=== PATIENT | female | born 1945 | race Caucasian/White ===

== ENCOUNTER 2018-07-20 07:39 | Inpatient (IN) ==
--- NOTE | 2018-07-20 08:17 | ED ---
HPI General Chief complaint: Skin/Abscess/Foreign Body Stated complaint: Re Eval of left hand middle finger Time Seen by Provider: 07/20/18 08:02 Source: patient Mode of arrival: ambulatory Limitations: no limitations History of Present Illness HPI narrative: 73yo F with PMH of COPD here for wound check. Pt was seen here 2 days ago for left third digit cellulitis and abscess and had I&D performed. She was placed on bactrim and cephalexin in addition to the doxycycline that she was taking for possible tick bite. She noticed redness up her left forearm yesterday but said the swelling on the 3rd digit does not seem to really change. Denies any fever but does feel a little nauseous. Denies any chest pain, sob, vomiting, abdominal pain, focal weakness or numbness. Related Data Home Medications Medication Instructions Recorded Confirmed doxycycline monohydrate 100 mg PO TID 07/18/18 07/20/18 [id number]-[id number]-xacxpsul 1 inh INHALATION DAILY 07/20/18 07/20/18 [Trelegy Ellipta] Previous Rx's Medication Instructions Recorded cephalexin [Keflex] 500 mg PO Q8H 10 Days #30 cap 07/18/18 sulfamethoxazole-trimethoprim 1 tab PO BID 10 Days #20 tab 07/18/18 [Bactrim DS] Allergies Allergy/AdvReac Type Severity Reaction Status Date / Time No Known Allergies Allergy Verified 07/20/18 07:50 Review of Systems ROS: all other systems reviewed are negative [facility] Social History Social History Substance History: No History of Abuse Second Hand Smoke Exposure: No Smoking Status: Former smoker How Often Do You Have a Drink Containing Alcohol: 2 to 4 times a month Recent Travel in [facility] within the Last 8 Weeks: No Recent Out of Country Travel within the Last 8 Weeks: No Immunization History Tetanus Immunization: <5 Years Exam Narrative Exam Narrative: GENERAL: 73yo F not in distress. SKIN: Focused skin assessment warm/dry. HEAD: Atraumatic. Normocephalic. CARDIOVASCULAR: Regular rate and rhythm. No murmur appreciated. RESPIRATORY: No accessory muscle use. Clear to auscultation. Breath sounds equal bilaterally. GASTROINTESTINAL: Abdomen soft, non-tender, nondistended. MUSCULOSKELETAL: Left hand: +Erythema and edema in third digit diffusely. Able to flex and extend third digit. +opening from I&D volar aspect of left 3rd IP, able to express more purulent discharge. Radial pulse 2+. Streaking erythema up dorsum of left forearm. Forearm compartment soft. NEUROLOGICAL: Awake and alert. No obvious cranial nerve deficits. Motor grossly within normal limits. Normal speech. PSYCHIATRIC: Appropriate mood and affect; insight and judgment normal. Course Initial Documented Vital Signs Temperature 98.6 F 07/20/18 07:46 Pulse Rate 93 H 07/20/18 07:46 Respiratory Rate 16 07/20/18 07:46 Blood Pressure 141/67 H 07/20/18 07:46 Pulse Oximetry 96 07/20/18 07:46 Last Documented Vital Signs Temperature 97.0 F L 07/21/18 16:00 Pulse Rate 71 07/21/18 16:00 Respiratory Rate 16 07/21/18 16:00 Blood Pressure 106/52 L 07/21/18 16:00 Pulse Oximetry 92 L 07/21/18 16:00 Medical Decision Making [facility] Narrative Medical decision making narrative: 73yo F with left third finger infection that improving with outpatient antibiotics. Pt is well appearing but is having new streaking up her left forearm. No fever here. HR is 93bpm. Labs reviewed, leukocytosis at 13.1 so patient does meet sepsis criteria. Lactic acid normal. Pt has been on doxycycline since 07/08/18 for tick bite and has been on bactrim and cephalexin for 2 days. Will admit pt for cellulitis/abscess that failed outpatient treatment. Discussed with hand surgery Dr. Dumont who ordered MRI and recommend to keep pt NPO for possible OR. Discussed with Dr. Vides and accepted to his service. Medical Screen Exam Complete: Yes Emergency Medical Condition: Yes Differential Diagnosis Differential Diagnosis: Cellulitis and abscess finger that failed outpatient therapy Lab Data Result diagrams: 07/21/18 04:40 07/20/18 10:06 Lab Results 07/20/18 07/20/18 07/20/18 Range/Units 08:25 08:25 08:25 CBC w Diff Slide review pending WBC 13.1 H (4.0-11.0) th/mm3 RBC 4.36 (4.00-5.30) mil/mm3 Hgb 13.7 (11.6-15.3) gm/dL Hct 39.7 (35.0-46.0) % MCV 91.1 (80.0-100.0) fL MCH 31.4 (27.0-34.0) pg MCHC 34.4 (32.0-36.0) % RDW 13.3 (11.6-17.2) % Plt Count 282 (150-450) th/mm3 MPV 8.3 (7.0-11.0) fL Neut % (Auto) 82.4 H (16.0-70.0) % Lymph % (Auto) 8.5 L (9.0-44.0) % [place] % (Auto) 5.3 (0.0-8.0) % Eos % (Auto) 0.1 (0.0-4.0) % Baso % (Auto) 3.7 H (0.0-2.0) % Neut # (Auto) 10.8 H (1.8-7.7) th/mm3 Lymph # (Auto) 1.1 (1.0-4.8) th/mm3 [place] # (Auto) 0.7 (0.0-0.9) th/mm3 Eos # (Auto) 0.0 (0.0-0.4) th/mm3 Baso # (Auto) 0.5 H (0.0-0.2) th/mm3 WBC Differential . Diff Scan Auto diff confirmed Differential Comment . ESR 19 (0-30) mm/hr Sodium (136-145) meq/L Potassium (3.5-5.1) meq/L Chloride (98-107) meq/L Carbon Dioxide (21.0-32.0) meq/L Anion Gap (5-15) meq/L BUN (7-18) mg/dL Creatinine (0.50-1.00) mg/dL Estimated GFR (>89) mL/min Random Glucose (74-106) mg/dL Lactic Acid 1.4 (0.4-2.0) mmol/L Calcium (8.5-10.1) mg/dL C-Reactive Protein (0.00-0.30) mg/dL 07/20/18 07/20/18 07/21/18 Range/Units 10:06 10:06 04:40 CBC w Diff Auto diff final WBC 8.2 (4.0-11.0) th/mm3 RBC 3.99 L (4.00-5.30) mil/mm3 Hgb 12.3 (11.6-15.3) gm/dL Hct 37.7 (35.0-46.0) % MCV 94.6 D (80.0-100.0) fL MCH 30.8 (27.0-34.0) pg MCHC 32.6 (32.0-36.0) % RDW 13.2 (11.6-17.2) % Plt Count 213 (150-450) th/mm3 MPV 8.6 (7.0-11.0) fL Neut % (Auto) 78.6 H (16.0-70.0) % Lymph % (Auto) 13.0 (9.0-44.0) % [place] % (Auto) 7.3 (0.0-8.0) % Eos % (Auto) 0.6 (0.0-4.0) % Baso % (Auto) 0.5 (0.0-2.0) % Neut # (Auto) 6.5 (1.8-7.7) th/mm3 Lymph # (Auto) 1.1 (1.0-4.8) th/mm3 [place] # (Auto) 0.6 (0.0-0.9) th/mm3 Eos # (Auto) 0.0 (0.0-0.4) th/mm3 Baso # (Auto) 0.0 (0.0-0.2) th/mm3 WBC Differential . Diff Scan Differential Comment . ESR (0-30) mm/hr Sodium 134 L (136-145) meq/L Potassium 3.8 (3.5-5.1) meq/L Chloride 102 (98-107) meq/L Carbon Dioxide 22.1 (21.0-32.0) meq/L Anion Gap 10 (5-15) meq/L BUN 15 (7-18) mg/dL Creatinine 0.76 (0.50-1.00) mg/dL Estimated GFR 75 L (>89) mL/min Random Glucose 95 (74-106) mg/dL Lactic Acid (0.4-2.0) mmol/L Calcium 8.6 (8.5-10.1) mg/dL C-Reactive Protein 3.43 H (0.00-0.30) mg/dL Imaging Data Radiologist's impression: Hand MRI 07/20/18 00:00 CONCLUSION: 1. Diffuse soft tissue swelling third digit without abscess, characteristic of cellulitis. Finger X-Ray 07/20/18 10:08 CONCLUSION: Soft tissue swelling third digit. Discharge Plan Discharge Disposition Patient Disposition: 30 Still Patient Discharge Details Diagnosis: Abscess of finger Physicians Team ED Provider: Isidra Salas Primary Care Provider: Chris Gonzales Attending Provider: Edenilson Downey Other Providers: Tita Dumont Reba K Status ED Status: Left Department Discharge Information Discharge Date/Time: 07/20/18 10:57
[2018-07-20 08:41] LABS: Baso # (Auto) 0.5 th/mm3 (0.0-0.2); Baso % (Auto) 3.7 % (0.0-2.0); Eos % (Auto) 0.1 % (0.0-4.0); Hematocrit 39.7 % (35.0-46.0); Hemoglobin 13.7 gm/dL (11.6-15.3); Lymph # (Auto) 1.1 th/mm3 (1.0-4.8); Lymph % (Auto) 8.5 % (9.0-44.0); Mean Corpuscular HGB Conc 34.4 % (32.0-36.0); Mean Corpuscular Hemoglobin 31.4 pg (27.0-34.0); Mean Corpuscular Volume 91.1 fL (80.0-100.0); Mean Platelet Volume 8.3 fL (7.0-11.0); Mono # (Auto) 0.7 th/mm3 (0.0-0.9); Mono % (Auto) 5.3 % (0.0-8.0); Neut # (Auto) 10.8 th/mm3 (1.8-7.7); Neut % (Auto) 82.4 % (16.0-70.0); Platelet Count 282 th/mm3 (150-450); Red Blood Count 4.36 mil/mm3 (4.00-5.30); Red Cell Distribution Width 13.3 % (11.6-17.2); White Blood Count 13.1 th/mm3 (4.0-11.0)
[2018-07-20] MEDS ORDERED: Vancomycin Inj 1,000 MG in Sodium Chlor 0.9% Inj 250 ML IV.SIG ONE (09:41)
[2018-07-20] MEDS ORDERED: Bisacodyl 10 MG Supp RECTAL PRN (09:47)
--- NOTE | 2018-07-20 09:53 | P.HP ---
History of Present Illness Service: Hospitalist Primary Care Physician: Chris Gonzales MD Chief Complaint: Left hand third digit infection History of Present Illness: Ms. Delgado is a pleasant 73-year-old female with a history of emphysema who presents to the emergency department on 07/20/2018 due to worsening infection of her third digit of her left hand. She did some yard work on 2017 with gloves on but felt a pinprick sensation. Subsequently she started having pain and swelling. She was seen in the emergency department on 07/18/2018. She underwent bedside I&D and was discharged on Bactrim and Keflex. Patient was already on doxycycline due to tick bite before. Despite taking antibiotics patient's symptoms did not improve which led to this admission. Patient denies any chest pain, shortness of breath, fever or chills. Denies any changes in bowel or bladder habits. Hand surgery was consulted. Past medical history: Emphysema Past surgical history: Hysterectomy, mammoplasty, tonsillectomy Social history: Patient denies using tobacco or illicit drugs. She drinks socially. Family history: Mother had Alzheimer's disease, father had [place]'s asthma. Review of Systems All other systems reviewed negative except as stated in HPI PMFSH - History History Provided By: Patient - Medical History Medical History: Medical History (Last Reviewed 07/20/18 @ 15:53 by Jude Vides DO) COPD (chronic obstructive pulmonary disease) History of hysterectomy - Surgical History Surgical History: Surgical History (Last Reviewed 07/20/18 @ 15:53 by Jude Vides DO) Hx of tonsillectomy - Tobacco History Second Hand Smoke Exposure: No Tobacco Use In Past 30 Days: No Smoking Status: Former smoker - Alcohol History How Often Do You Have a Drink Containing Alcohol: 2 to 4 times a month - Substance Use History Substance History: No History of Abuse - Travel History Recent Travel in the [place] Within the Last 8 Weeks: No Recent Travel Out of the Country Within the Last 8 Weeks: No - Immunization History Tetanus Immunization: <5 Years Medications and Allergies Active Medications: Active Medications Acetaminophen (Tylenol) 650 mg PO Q4H PRN PRN Reason: Headache, fever, pain 1-4 Al Hydroxide/Mg Hydroxide (Milk Of Magnesia Liq) 30 ml PO Q12H PRN PRN Reason: Mild Constipation Bisacodyl (Dulcolax Supp) 10 mg RECTAL DAILY PRN PRN Reason: SEVERE CONSITIPATION Vancomycin HCl 1,000 mg/ (Sodium Chloride) 250 mls @ 250 mls/hr IV.SIG ONCE ONE Stop: 07/20/18 10:40 Sodium Chloride (Ns Inj) 1,000 mls @ 100 mls/hr IV.CONT .Q10H SILVESTRE Stop: 07/21/18 09:59 Lactulose (Lactulose Liq) 30 ml PO DAILY PRN PRN Reason: SEVERE CONSITIPATION Ondansetron HCl (Zofran Inj) 4 mg IV.PUSH Q6H PRN PRN Reason: NAUSEA OR VOMITING Sennosides (Senokot) 17.2 mg PO Q12H PRN PRN Reason: Moderate Constipation Allergies Allergy/AdvReac Type Severity Reaction Status Date / Time No Known Allergies Allergy Verified 07/20/18 07:50 Home Medications Medication Instructions Recorded Confirmed Type doxycycline monohydrate 100 mg PO TID 07/18/18 07/20/18 History svlqgegoewb-wwrlmqufn-cjypcrfa 1 inh INHALATION DAILY 07/20/18 07/20/18 History [Trelegy Ellipta] Exam Vital signs: Vital Signs 07/20/18 07:46 Temperature 98.6 F Pulse Rate 93 H Respiratory Rate 16 Blood Pressure 141/67 H Pulse Oximetry 96 Intake & Output 07/19/18 07/20/18 07/20/18 18:59 06:59 18:59 Weight 52.9 kg Narrative: GENERAL: This is a well-nourished, well-developed patient, in no apparent distress. SKIN: No rashes, ecchymoses or lesions. Warm and dry. HEAD: Atraumatic. Normocephalic. No temporal or scalp tenderness. EYES: Pupils equal round and reactive. No injection or drainage. ENT: Nose without bleeding, purulent drainage or septal hematoma. Airway patent. NECK: Trachea midline. No lymphadenopathy. Supple, nontender, no meningeal signs. CARDIOVASCULAR: Regular rate and rhythm without murmurs, gallops, or rubs. No JVD. RESPIRATORY: Clear to auscultation. Breath sounds equal bilaterally. No wheezes , rales, or rhonchi. GASTROINTESTINAL: Abdomen soft, non-tender, nondistended. No guarding. MUSCULOSKELETAL: Extremities without clubbing, cyanosis. Significant swelling of left hand and there is purplish discoloration with edema and tenderness of her left hand third digit. NEUROLOGICAL: Awake and alert. Cranial nerves II through XII intact. No focal neurological deficits. Normal speech. Results - Labs CBC & Chem 7: 07/20/18 08:25 07/20/18 10:06 Labs: Laboratory Results - last 24 hr 07/20/18 07/20/18 08:25 08:25 CBC w Diff Slide review pending WBC 13.1 H RBC 4.36 Hgb 13.7 Hct 39.7 MCV 91.1 MCH 31.4 MCHC 34.4 RDW 13.3 Plt Count 282 MPV 8.3 Neut % (Auto) 82.4 H Lymph % (Auto) 8.5 L [place] % (Auto) 5.3 Eos % (Auto) 0.1 Baso % (Auto) 3.7 H Neut # (Auto) 10.8 H Lymph # (Auto) 1.1 [place] # (Auto) 0.7 Eos # (Auto) 0.0 Baso # (Auto) 0.5 H WBC Differential . Diff Scan Auto diff confirmed Differential Comment . Lactic Acid 1.4 - Imaging Hand MRI 07/20/18 00:00 CONCLUSION: 1. Diffuse soft tissue swelling third digit without abscess, characteristic of cellulitis. Finger X-Ray 07/20/18 10:08 CONCLUSION: Soft tissue swelling third digit. Caprini VTE Risk Assessment Caprini VTE Risk Assessment: No/Low Risk (score <= 1) Caprini Risk Assessment Model: Point Value = 1 Point Value = 2 Point Value = 3 Point Value = 5 Age 41-60 Minor surgery BMI > 25 kg/m2 Swollen legs Varicose veins or History of unexplained or recurrent spontaneous Oral contraceptives or hormone replacement Sepsis (< 1 month) Serious lung disease, including pneumonia (< 1 month) Abnormal pulmonary function Acute myocardial infarction Congestive heart failure (< 1 month) History of inflammatory bowel disease Medical patient at bed rest Age 61-74 Arthroscopic surgery Major open surgery (> 45 min) Laparoscopic surgery (> 45 min) Malignancy Confined to bed (> 72 hours) Immobilizing plaster cast Central venous access Age >= 75 History of VTE Family history of VTE Factor V Leiden Prothrombin [id number] Lupus anticoagulant Anticardiolipin antibodies Elevated serum homocysteine Heparin-induced thrombocytopenia Other congenital or acquired thrombophilia Stroke (< 1 month) Elective arthroplasty Hip, pelvis, or leg fracture Acute spinal cord injury (< 1 month) Prophylaxis Regimen: Total Risk Factor Score Risk Level Prophylaxis Regimen 0-1 Low Early ambulation 2 Moderate Order ONE of the following: *Sequential Compression Device (SCD) *Heparin 5000 units SQ BID 3-4 Higher Order ONE of the following medications: *Heparin 5000 units SQ TID *Enoxaparin/Lovenox 40 mg SQ daily (WT < 150 kg, CrCl > 30 mL/min) *Enoxaparin/Lovenox 30 mg SQ daily (WT < 150 kg, CrCl > 10-29 mL/min) *Enoxaparin/Lovenox 30 mg SQ BID (WT < 150 kg, CrCl > 30 mL/min) AND/OR *Sequential Compression Device (SCD) 5 or more Highest Order ONE of the following medications: *Heparin 5000 units SQ TID (Preferred with Epidurals) *Enoxaparin/Lovenox 40 mg SQ daily (WT < 150 kg, CrCl > 30 mL/min) *Enoxaparin/Lovenox 30 mg SQ daily (WT < 150 kg, CrCl > 10-29 mL/min) *Enoxaparin/Lovenox 30 mg SQ BID (WT < 150 kg, CrCl > 30 mL/min) AND *Sequential Compression Device (SCD) Assessment and Plan - Plan Ms. Delgado is a pleasant 73-year-old female with a history of emphysema who presented to the emergency department due to worsening left hand third digit infection that she noticed initially on 07/17/2018. She was seen in the emergency department on 07/18/2018 underwent bedside I&D and subsequently was discharged from the ED on oral Keflex and Bactrim. Despite taking antibiotics her symptoms did not get better which led to this admission. Left hand third digit infection Infection appears to be spreading and now her left hand and left forearm involved. Hand surgery consulted. MRI shows no abscess. Probable surgical intervention today. Continue cefepime and vancomycin empirically. History of emphysema Continue Trelegy Ellipta. Currently no evidence of decompensation. Full code. SCDs, ambulation. Discharge plan: Probable discharge tomorrow 07/21/2018 pending hand surgery clearance.
[2018-07-20 10:23] LABS: Potassium 3.8 meq/L (3.5-5.1)
[2018-07-20 10:26] LABS: Calcium 8.6 mg/dL (8.5-10.1); Carbon Dioxide 22.1 meq/L (21.0-32.0)
--- NOTE | 2018-07-20 10:55 | XR ---
EXAM DATE: 07/20/2018 10:45 AM EST AGE/SEX: 73 years / Female INDICATIONS: Swollen, painful finger after working in garden. No known injury CLINICAL DATA: This is the patient's initial encounter. Patient reports that signs and symptoms have been present for 4 - 6 days and indicates a pain score of 5/10. MEDICAL/SURGICAL HISTORY: None. None. COMPARISON: No prior exams available for comparison. FINDINGS: There is soft tissue swelling of the third digit. 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 No fracture or dislocation. CONCLUSION: Soft tissue swelling third digit. Electronically signed by: Joby Pabon MD 07/20/2018 10:54 AM EST
[2018-07-20] MEDS ORDERED: Vancomycin Consult Pharmacy OTHER PRN (11:00)
--- NOTE | 2018-07-20 12:13 | MR ---
EXAM DATE: 07/20/2018 12:02 PM EST AGE/SEX: 73 years / Female INDICATIONS: Osteomyelitis. Abscess. Edema third digit left hand. CLINICAL DATA: This is the patient's initial encounter. Patient reports that signs and symptoms have been present for 1 day and indicates a pain score of 0/10. MEDICAL/SURGICAL HISTORY: Chronic obstructive pulmonary disease. Tonsillectomy. Right carpal tu nnel. COMPARISON: [facility], FINGER LEFT 3RD DIGIT MIN 2V, 07/20/2018. . TECHNIQUE: Multiplanar, multisequence MRI examination was performed without contrast. FINDINGS: Marrow: There is homogeneous signal in the marrow of the visualized bones of the hand. Metacarpal-Phalangeal Joints: The MCP joints are unremarkable with no evidence of erosion, effusion, or malalignment. Interphalangeal Joints: The PIP and DIP joints are unremarkable with no evidence of erosion, effusio n or malalignment. Extensor Tendons: The visualized extensor tendons are intact. Flexor Tendons: The visualized flexor tendons are intact. Soft Tissues: There is no evidence of soft tissue mass or fluid collection. There is diffuse subcutan eous edema seen circumferentially the third digit. I do not see an abscess. CONCLUSION: 1. Diffuse soft tissue swelling third digit without abscess, characteristic of cellulitis. Electronically signed by: Joby Pabon MD 07/20/2018 12:11 PM EST
[2018-07-20] MEDS: Sod Chloride 0.9% Inj 1,000 ML IV.CONT SCH (12:30)
[2018-07-20] MEDS ORDERED: Chlorhexidine Gluconate 2% 1 Pack (2 Cloths) TOPICAL ONE (15:59)
[2018-07-20] MEDS ORDERED: Metoprolol Tartrate 25 MG Tablet PO ONE (15:59)
[2018-07-20] MEDS ORDERED: Sodium Chlor 0.9% Inj 500 ML IV.SIG SCH (16:00)
[2018-07-20] MEDS ORDERED: Neomycin/Polymyxin G.U. Irrigant 1 ML Ampul ONE (16:27)
[2018-07-20] MEDS ORDERED: Lidocaine 2% Inj 50 ML Vial ONE (16:27)
[2018-07-20] MEDS ORDERED: fentaNYL Citrate Inj 100 MCG/2 ML Ampul ONE (16:33)
[2018-07-20] MEDS ORDERED: Lidocaine PF 1% Inj 5 ML Syringe INFILTRATN ONE (17:03)
--- NOTE | 2018-07-20 17:56 | P.PNOP ---
Physical Exam Vital signs: Vital Signs 07/20/18 07:46 07/20/18 09:56 07/20/18 12:00 Temperature 98.6 F 97.2 F L Pulse Rate 93 H 89 71 Respiratory Rate 16 16 20 Blood Pressure 141/67 H 136/65 131/64 Pulse Oximetry 96 99 07/20/18 15:48 Temperature 97.2 F L Pulse Rate 71 Respiratory Rate 20 Blood Pressure 131/64 Pulse Oximetry 98 Intake & Output 07/19/18 07/20/18 07/20/18 18:59 06:59 18:59 Intake Total 350 / 350 Balance 350 / 350 Weight 52.9 kg Intake: IV 350 / 350 Maxipime Inj 2,000 MG In NS Inj 100 / 100 100 ML @ 200 mls/hr IV.SIG Q8H SILVESTRE Rx#:[id number] Vancomycin Inj 1,000 MG In NS 250 / 250 Inj 250 ML @ 250 mls/hr IV.SIG ONCE ONE Rx#:[id number] Results - Labs CBC & Chem 7: 07/20/18 08:25 07/20/18 10:06 Laboratory Results - last 24 hr 07/20/18 07/20/18 07/20/18 08:25 08:25 08:25 CBC w Diff Slide review pending WBC 13.1 H RBC 4.36 Hgb 13.7 Hct 39.7 MCV 91.1 MCH 31.4 MCHC 34.4 RDW 13.3 Plt Count 282 MPV 8.3 Neut % (Auto) 82.4 H Lymph % (Auto) 8.5 L [place] % (Auto) 5.3 Eos % (Auto) 0.1 Baso % (Auto) 3.7 H Neut # (Auto) 10.8 H Lymph # (Auto) 1.1 [place] # (Auto) 0.7 Eos # (Auto) 0.0 Baso # (Auto) 0.5 H WBC Differential . Diff Scan Auto diff confirmed Differential Comment . ESR 19 Sodium Potassium Chloride Carbon Dioxide Anion Gap BUN Creatinine Estimated GFR Random Glucose Lactic Acid 1.4 Calcium C-Reactive Protein 07/20/18 07/20/18 10:06 10:06 CBC w Diff WBC RBC Hgb Hct MCV MCH MCHC RDW Plt Count MPV Neut % (Auto) Lymph % (Auto) [place] % (Auto) Eos % (Auto) Baso % (Auto) Neut # (Auto) Lymph # (Auto) [place] # (Auto) Eos # (Auto) Baso # (Auto) WBC Differential Diff Scan Differential Comment ESR Sodium 134 L Potassium 3.8 Chloride 102 Carbon Dioxide 22.1 Anion Gap 10 BUN 15 Creatinine 0.76 Estimated GFR 75 L Random Glucose 95 Lactic Acid Calcium 8.6 C-Reactive Protein 3.43 H - Imaging Impressions Hand MRI 07/20/18 00:00 CONCLUSION: 1. Diffuse soft tissue swelling third digit without abscess, characteristic of cellulitis. Finger X-Ray 07/20/18 10:08 CONCLUSION: Soft tissue swelling third digit. Assessment and Plan - Assessment and Plan 73yF prior patient of mine s/p R CTR presents now after sustaining injury while gardening to left middle finger 07/15. Patient presented to ER 07/18 and underwent I&D by ER physician with cultures prelim gram + rods, represented today with persistent pain and swelling now POD0 s/p I&D left middle finger and flexor tendon sheath -Significant purulence along flexor tendon sheath -Follow cultures and ID recs, discussed with patient need for a few days of admission for IV Ab -Elevate left hand, gentle ROM fingers, do NOT remove dressing until Dr Dumont changes dressing, likely followup in office 07/24 if discharged by that time
--- NOTE | 2018-07-20 18:37 | MB ---
cc: Tita Dumont MD DATE: 07/20/2018 REASON FOR CONSULTATION: Abscess, left middle finger. HISTORY OF PRESENT ILLNESS: Lnida Delgado is a 73-year-old female who I have seen in the past for a right carpal tunnel release, who states that when she was up [place] at the end of June, she sustained a tick bite over her left hip and was taking doxycycline for this. She states that she was working outside in the yard on 07/15/2018, and the following day, she noticed an area of purulence over the volar aspect of the left middle finger PIP joint. She presented to the emergency room on 07/18/2018 where she underwent incision and drainage by the emergency room physician, a culture and discharged on oral antibiotics including possibly Keflex and Bactrim. The patient re-presented to the emergency room today as she was concerned for minimal improvement in her symptoms. She does report pain and swelling over the left middle finger. Reports mild paresthesias. Culture is currently growing gram-positive rods. PAST MEDICAL HISTORY: COPD. PAST SURGICAL HISTORY: Hysterectomy, tonsillectomy, right carpal tunnel release. SOCIAL HISTORY: The patient is a snowbird. She recently returned from [place]. She lives at home with her . She denies any significant tobacco, alcohol or drug use. PHYSICAL EXAMINATION: The patient is alert and oriented. Exam of the left middle finger shows significant erythema over the left middle finger. Fusiform swelling of the left middle finger. Function intact of FDS and FDP with significant stiffness over the left middle finger. There is a puncture over the central aspect of the volar left middle finger PIP joint with some purulent drainage. Sensation present but decreased on the radial and ulnar side. Less than 2 second capillary refill. LABORATORY DATA: White count 13.1. ESR 19. CRP 3.43. Culture from 07/18/2018 growing a gram-positive ely. IMAGING DATA: X-ray shows no evidence of bony involvement. MRI shows concern for abscess along the flexor tendon sheath of the left middle finger. ASSESSMENT AND PLAN: A 73-year-old female with minimal improvement on oral antibiotics after an infection of the left middle finger. Treatment options discussed with the patient. She elected to proceed with surgical intervention. Risks were explained, which include, but are not limited to wound complications, infection, stiffness, pain, need for additional surgery, and she elected to proceed. This will be done at the earliest available time today. It was discussed with the patient she will likely need to remain in the hospital for several days for intravenous antibiotics while the cultures result. MD VI Amezcua/rodolfo , 06:01 PM , 06:07 PM SUSANA
--- NOTE | 2018-07-20 19:04 | MP ---
cc: Tita Dumont MD DATE OF OPERATION: 07/20/2018 PREOPERATIVE DIAGNOSIS: Abscess involving flexor tendon sheath, left middle finger. POSTOPERATIVE DIAGNOSIS: Abscess involving flexor tendon sheath, left middle finger. PROCEDURE PERFORMED: Incision and drainage of abscess, left middle finger flexor tendon sheath. SURGEON: Tita Dumont MD ANESTHESIA: General and local. TOURNIQUET TIME: 25 minutes at 200 mmHg. SPECIMEN: Culture. INDICATIONS FOR PROCEDURE: Linda Delgado is a 73-year-old female who states that she sustained an injury to her left middle finger in the garden on 07/15/2018. She underwent incision and drainage by the emergency room physician on 07/18/2018 with minimal improvement and re-presented today for evaluation. She elected to proceed with surgical intervention. Risks were explained, which include, but are not limited to wound complications, infection, stiffness, pain, need for additional surgery, and she elected to proceed. DESCRIPTION OF PROCEDURE: The patient was identified in the preoperative holding area and the correct extremity was marked. The patient was taken to the operating room where anesthesia was induced. The left upper extremity was prepped and draped in normal sterile fashion. Approximately 10 mL of 2% lidocaine without epinephrine was used for local anesthesia. Unfortunately, the ER physician made a central vertical incision over the volar left middle finger PIP joint which was not in line with a Aurora incision. I did my best to incorporate this into a Aurora incision. Upon doing this, there was significant purulence subcutaneously as well as along the flexor tendon sheath. This was debrided using antibiotic saline as well as rongeurs. The flexor tendon was intact. The digital nerves and arteries were intact. Tourniquet was released. Hemostasis was obtained. The wound was closed on the edges with nylon and centrally with chromic, again, due to the significant maceration. Upon release of the tourniquet, there was less than 2-second capillary refill to the finger. A culture was sent. The patient was placed into a bulky soft dressing and awoken from anesthesia without any complications. It was recommended the patient remain in the hospital for several days for IV antibiotics. Tita Dumont MD SE/rodolfo , 06:03 PM , 06:08 PM SUSANA
[2018-07-21] MEDS: Sod Chloride 0.9% Inj 1,000 ML IV.CONT SCH ×2 (01:56→11:13)
[2018-07-21 05:41] LABS: Baso % (Auto) 0.5 % (0.0-2.0); Eos % (Auto) 0.6 % (0.0-4.0); Hematocrit 37.7 % (35.0-46.0); Hemoglobin 12.3 gm/dL (11.6-15.3); Lymph # (Auto) 1.1 th/mm3 (1.0-4.8); Mean Corpuscular HGB Conc 32.6 % (32.0-36.0); Mean Corpuscular Hemoglobin 30.8 pg (27.0-34.0); Mean Corpuscular Volume 94.6 fL (80.0-100.0); Mean Platelet Volume 8.6 fL (7.0-11.0); Mono # (Auto) 0.6 th/mm3 (0.0-0.9); Mono % (Auto) 7.3 % (0.0-8.0); Neut # (Auto) 6.5 th/mm3 (1.8-7.7); Neut % (Auto) 78.6 % (16.0-70.0); Platelet Count 213 th/mm3 (150-450); Red Blood Count 3.99 mil/mm3 (4.00-5.30); Red Cell Distribution Width 13.2 % (11.6-17.2); White Blood Count 8.2 th/mm3 (4.0-11.0)
[2018-07-21] MEDS ORDERED: Vancomycin Inj 1,200 MG in Sodium Chlor 0.9% Inj 250 ML IV.SIG SCH (06:00)
[2018-07-21] MEDS ORDERED: Non-Formulary Drug (Fluticasone-Umeclidin-Vilanter [Trelegy Ellipta] 1 INH) INHALATION SCH (09:00)
[2018-07-21] MEDS: FLUTICASONE UMECLIDINIUM VILANTEROL INH SCH (09:58)
--- NOTE | 2018-07-21 10:03 | P.PN ---
Subjective Interval history: Follow up for left hand digit 3 infection s/p I&D. Patient is currently doing well. No fever, chills. Pain is well controlled on PO pain meds. Physical Exam Vital signs: Vital Signs 07/20/18 12:00 07/20/18 15:48 07/20/18 17:40 Temperature 97.2 F L 97.2 F L 98.2 F Pulse Rate 71 71 82 Respiratory Rate 20 20 18 Blood Pressure 131/64 131/64 147/82 H Pulse Oximetry 98 98 07/20/18 17:54 07/20/18 18:09 07/20/18 18:28 Temperature 98.0 F Pulse Rate 75 75 77 Respiratory Rate 18 18 Blood Pressure 138/71 131/73 Pulse Oximetry 99 97 07/20/18 20:00 07/21/18 00:00 07/21/18 08:00 Temperature 98.5 F 97.7 F 97.8 F Pulse Rate 80 79 81 Respiratory Rate 18 18 17 Blood Pressure 134/59 L 132/64 97/52 L Pulse Oximetry 97 95 96 Intake & Output 07/20/18 07/21/18 07/21/18 18:59 06:59 18:59 Intake Total 950 / 950 1702 / 1702 Output Total 350 / 350 Balance 950 / 950 1352 / 1352 Weight 52.9 kg 53.8 kg Intake: IV 350 / 350 1462 / 1462 NS Inj 1,000 ML @ 100 mls/hr IV 1000 / 1000 .CONT .Q10H [facility] Rx#:[id number] Maxipime Inj 2,000 MG In NS Inj 100 / 100 200 / 200 100 ML @ 200 mls/hr IV.SIG Q8H [facility] Rx#:[id number] Vancomycin Inj 1,000 MG In NS 250 / 250 Inj 250 ML @ 250 mls/hr IV.SIG ONCE ONE Rx#:[id number] Vancomycin Inj 1,200 MG In NS 262 / 262 Inj 250 ML @ 250 mls/hr IV.SIG Q24H [facility] Rx#:[id number] Oral 240 / 240 Anesthesia Amount 500 / 500 Other 100 / 100 Output: Urine 350 / 350 Other: Other Intake Source Saline Solution # Voids 0 1 Date of Last Bowel Movement 07/19/18 Narrative: GENERAL: Alert, Oriented x 3, NAD. SKIN: Warm and dry. HEAD: Normocephalic. EYES: No scleral icterus. No injection or drainage. NECK: Supple, trachea midline. No JVD or lymphadenopathy. CARDIOVASCULAR: Regular rate and rhythm without murmurs, gallops, or rubs. RESPIRATORY: Breath sounds equal bilaterally. No accessory muscle use. GASTROINTESTINAL: Abdomen soft, non-tender, nondistended. MUSCULOSKELETAL: No cyanosis, or edema. Extremities without clubbing, cyanosis. s/p I&D, left hand wrapped in dressing. able to move fingers. BACK: Nontender without obvious deformity. No CVA tenderness. Results - Labs CBC & Chem 7: 07/21/18 04:40 07/20/18 10:06 Laboratory Results - last 24 hr 07/20/18 07/20/18 07/20/18 08:25 10:06 10:06 CBC w Diff WBC RBC Hgb Hct MCV MCH MCHC RDW Plt Count MPV Neut % (Auto) Lymph % (Auto) [place] % (Auto) Eos % (Auto) Baso % (Auto) Neut # (Auto) Lymph # (Auto) [place] # (Auto) Eos # (Auto) Baso # (Auto) WBC Differential Differential Comment ESR 19 Sodium 134 L Potassium 3.8 Chloride 102 Carbon Dioxide 22.1 Anion Gap 10 BUN 15 Creatinine 0.76 Estimated GFR 75 L Random Glucose 95 Calcium 8.6 C-Reactive Protein 3.43 H 07/21/18 04:40 CBC w Diff Auto diff final WBC 8.2 RBC 3.99 L Hgb 12.3 Hct 37.7 MCV 94.6 D MCH 30.8 MCHC 32.6 RDW 13.2 Plt Count 213 MPV 8.6 Neut % (Auto) 78.6 H Lymph % (Auto) 13.0 [place] % (Auto) 7.3 Eos % (Auto) 0.6 Baso % (Auto) 0.5 Neut # (Auto) 6.5 Lymph # (Auto) 1.1 [place] # (Auto) 0.6 Eos # (Auto) 0.0 Baso # (Auto) 0.0 WBC Differential . Differential Comment . ESR Sodium Potassium Chloride Carbon Dioxide Anion Gap BUN Creatinine Estimated GFR Random Glucose Calcium C-Reactive Protein - Imaging Impressions Hand MRI 07/20/18 00:00 CONCLUSION: 1. Diffuse soft tissue swelling third digit without abscess, characteristic of cellulitis. Finger X-Ray 07/20/18 10:08 CONCLUSION: Soft tissue swelling third digit. - Procedures I&D of left middle finger 07/20/2018 Assessment and Plan - Plan Ms. Delgado is a pleasant 73-year-old female with a history of emphysema who presented to the emergency department due to worsening left hand third digit infection that she noticed initially on 07/17/2018. She was seen in the emergency department on 07/18/2018 underwent bedside I&D and subsequently was discharged from the ED on oral Keflex and Bactrim. Despite taking antibiotics her symptoms did not get better which led to this admission. Left hand third digit infection Infection appears to be spreading and now her left hand and left forearm involved. Hand surgery consulted. MRI shows no abscess. Status post I&D Patient was on cefepime and vancomycin empirically. Culture results from 06/17/2018 shows gram-positive rods. Infectious disease switched antibiotics to Unasyn and Bactrim. History of emphysema Continue Trelegy Ellipta. Currently no evidence of decompensation. Full code. SCDs, ambulation. Discharge plan: Likely discharge in 2-3 days unless culture results are finalized.
--- NOTE | 2018-07-21 11:02 | P.CONID ---
History of Present Illness Service: Infectious Disease Consult date: 07/21/18 Requesting Physician: Tita Dumont Reason for Consult: Hand infection Primary Care Provider: Chris Gonzales MD Chief Complaint: Left hand third digit infection History of Present Illness: Patient says she was doing some weeding and the next day she noticed a small pin point pustular lesion that rapidly got worse and so she came to the ER on and the lesion was drained and she was sent home on PO Keflex and Bactrim. However she says it got worse and so she came back . Culture from when she was in ER - is growing a GPR - likely Nocardia. Patient does have some swelling in arm above elbow. Review of Systems Constitutional: Denies anorexia, Denies body ache(s), Denies chills, Denies fever(s) Eyes: Denies blurry vision, Denies bulging eyes Ears, Nose, Mouth, and Throat: Denies bleeding gums, Denies bad breath, Denies change in voice Cardiovascular: Denies chest pain, Denies leg pain with activity, Denies shortness of breath Respiratory: Reports shortness of breath, Denies chest congestion, Denies cough , Denies coughing up blood Gastrointestinal: Denies abdominal pain, Denies change in bowel habits, Denies difficulty swallowing, Denies loose stools Genitourinary: Denies difficulty urinating, Denies urinary urgency Musculoskeletal: Denies body aches, Denies muscle weakness Skin/Breast: Reports new lesions, Reports redness Neurologic: Denies abnormal hearing, Denies lack of coordination, Denies memory loss [facility] - History History Provided By: Patient - Medical History Medical History: Medical History (Last Reviewed 07/20/18 @ 15:53 by Jude Vides DO) COPD (chronic obstructive pulmonary disease) History of hysterectomy - Surgical History Surgical History: Surgical History (Last Reviewed 07/20/18 @ 15:53 by Jude Vides DO) Hx of tonsillectomy - Tobacco History Second Hand Smoke Exposure: No Tobacco Use In Past 30 Days: No Smoking Status: Former smoker - Alcohol History How Often Do You Have a Drink Containing Alcohol: 2 to 4 times a month - Substance Use History Substance History: No History of Abuse - Travel History Recent Travel in the [place] Within the Last 8 Weeks: No Recent Travel Out of the Country Within the Last 8 Weeks: No - Immunization History Tetanus Immunization: <5 Years Hx Influenza Vaccine This Season: No Medications and Allergies Active Medications: Active Medications Acetaminophen (Tylenol) 650 mg PO Q4H PRN PRN Reason: Headache, fever, pain 1-4 Al Hydroxide/Mg Hydroxide (Milk Of Magnesia Liq) 30 ml PO Q12H PRN PRN Reason: Mild Constipation Bisacodyl (Dulcolax Supp) 10 mg RECTAL DAILY PRN PRN Reason: SEVERE CONSITIPATION Lactated Ringer's (Lr 1000 Ml Inj) 1,000 mls @ 30 mls/hr IV.SIG .Q24H [facility] Stop: 07/21/18 15:59 Last Admin: 07/20/18 16:00 Dose: 30 mls/hr Sodium Chloride (Ns Inj) 500 mls @ 30 mls/hr IV.SIG .Q10H [facility] Last Admin: 07/20/18 18:31 Dose: Not Given Ampicillin Sodium/Sulbactam (Sodium 3 gm/ Sodium Chloride) 100 mls @ 200 mls/ hr IV.SIG Q6H [facility] Lactulose (Lactulose Liq) 30 ml PO DAILY PRN PRN Reason: SEVERE CONSITIPATION Ondansetron HCl (Zofran Inj) 4 mg IV.PUSH Q6H PRN PRN Reason: NAUSEA OR VOMITING Oxycodone/Acetaminophen (Percocet 5/325 Mg) 1 tab PO Q6H PRN PRN Reason: Pain 5-10 Last Admin: 07/21/18 05:51 Dose: 1 tab Pt Own Med: Fluticasone- Umeclidinium- Vilanterol (Trelegy Ellipta) 0 each INH DAILY [facility] Last Admin: 07/21/18 09:58 Dose: Not Given Sennosides (Senokot) 17.2 mg PO Q12H PRN PRN Reason: Moderate Constipation Trimethoprim/Sulfamethoxazole (Bactrim Ds) 1 tab PO Q12HR [facility] Allergies Allergy/AdvReac Type Severity Reaction Status Date / Time No Known Allergies Allergy Verified 07/20/18 07:50 Home Medications Medication Instructions Recorded Confirmed Type doxycycline monohydrate 100 mg PO TID 07/18/18 07/20/18 History tunyopxchda-qerxesryg-pllhyrfr 1 inh INHALATION DAILY 07/20/18 07/20/18 History [Trelegy Ellipta] Exam Vital signs: Vital Signs 07/20/18 12:00 07/20/18 15:48 07/20/18 17:40 Temperature 97.2 F L 97.2 F L 98.2 F Pulse Rate 71 71 82 Respiratory Rate 20 20 18 Blood Pressure 131/64 131/64 147/82 H Pulse Oximetry 98 98 07/20/18 17:54 07/20/18 18:09 07/20/18 18:28 Temperature 98.0 F Pulse Rate 75 75 77 Respiratory Rate 18 18 Blood Pressure 138/71 131/73 Pulse Oximetry 99 97 07/20/18 20:00 07/21/18 00:00 07/21/18 08:00 Temperature 98.5 F 97.7 F 97.8 F Pulse Rate 80 79 81 Respiratory Rate 18 18 17 Blood Pressure 134/59 L 132/64 97/52 L Pulse Oximetry 97 95 96 Intake & Output 07/20/18 07/21/18 07/21/18 18:59 06:59 18:59 Intake Total 950 / 950 1702 / 1702 1000 / 1000 Output Total 350 / 350 Balance 950 / 950 1352 / 1352 1000 / 1000 Weight 52.9 kg 53.8 kg Intake: IV 350 / 350 1462 / 1462 1000 / 1000 NS Inj 1,000 ML @ 100 mls/hr IV 1000 / 1000 1000 / 1000 .CONT .Q10H [facility] Rx#:[id number] Maxipime Inj 2,000 MG In NS Inj 100 / 100 200 / 200 100 ML @ 200 mls/hr IV.SIG Q8H [facility] Rx#:[id number] Vancomycin Inj 1,000 MG In NS 250 / 250 Inj 250 ML @ 250 mls/hr IV.SIG ONCE ONE Rx#:[id number] Vancomycin Inj 1,200 MG In NS 262 / 262 Inj 250 ML @ 250 mls/hr IV.SIG Q24H [facility] Rx#:[id number] Oral 240 / 240 Anesthesia Amount 500 / 500 Other 100 / 100 Output: Urine 350 / 350 Other: Other Intake Source Saline Solution # Voids 0 1 Date of Last Bowel Movement 07/19/18 - Constitutional no acute distress, cooperative - Routine HEENT Exam Head: Present: normocephalic, atraumatic Eye: Present: EOMI, conjunctival icterus, conjunctivae pink. Absent: nystagmus ENT: Present: mucous membranes moist - Routine Neck Exam Present: supple, full ROM. Absent: thyromegaly - Routine Chest/Breast/Axilla Exam Chest wall: Absent: tenderness, mass - Routine Respiratory Exam Present: decreased breath sounds. Absent: accessory muscle use, wheezes, crackles - Routine Cardiovascular Exam Present: RRR, S1, S2, murmur - Routine Abdominal Exam Present: soft, normoactive bowel sounds. Absent: tenderness, distended - Detailed Upper Extremity Exam Shoulder/Upper Arm: Left swelling, Left warmth, Left tenderness over the bicipital tendon (Nodular area felt in arm) Results - Labs CBC & Chem 7: 07/21/18 04:40 07/20/18 10:06 Labs: Laboratory Results - last 24 hr 07/20/18 07/21/18 08:25 04:40 CBC w Diff Auto diff final WBC 8.2 RBC 3.99 L Hgb 12.3 Hct 37.7 MCV 94.6 D MCH 30.8 MCHC 32.6 RDW 13.2 Plt Count 213 MPV 8.6 Neut % (Auto) 78.6 H Lymph % (Auto) 13.0 [place] % (Auto) 7.3 Eos % (Auto) 0.6 Baso % (Auto) 0.5 Neut # (Auto) 6.5 Lymph # (Auto) 1.1 [place] # (Auto) 0.6 Eos # (Auto) 0.0 Baso # (Auto) 0.0 WBC Differential . Differential Comment . ESR 19 - Imaging Impressions Hand MRI 07/20/18 00:00 CONCLUSION: 1. Diffuse soft tissue swelling third digit without abscess, characteristic of cellulitis. Finger X-Ray 07/20/18 10:08 CONCLUSION: Soft tissue swelling third digit. 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
[2018-07-21] MEDS: Ampicillin/Sulbactam Inj 3 GM in Sodium Chloride 0.9% Inj 100 ML IV.SIG SCH ×2 (11:09→17:04)
--- NOTE | 2018-07-21 15:43 | ECG ---
Date Performed: 07/20/2018 Time Performed: 14:37:43 PTAGE: 73 years EKG: ECTOPIC ATRIAL RHYTHM RIGHT BUNDLE BRANCH BLOCK ABNORMAL ECG PREVIOUS TRACING : 06/18/2006 09.13 Compared to previous tracing, Right bundle branch block is new. Clinical correlation is recommended DOCTOR: Benjamin Loving Interpretating Date/Time 07/21/2018 15:42:47
[2018-07-21] MEDS: Acetaminophen 325 MG Tablet PO PRN (20:06)
[2018-07-22] MEDS: Ampicillin/Sulbactam Inj 3 GM in Sodium Chloride 0.9% Inj 100 ML IV.SIG SCH ×5 (01:10→23:48)
[2018-07-22] MEDS: Acetaminophen 325 MG Tablet PO PRN ×4 (06:02→21:25)
[2018-07-22 06:22] LABS: Glomerular Filtration Rate Greater Than 89 mL/min (>89)
[2018-07-22] MEDS: FLUTICASONE UMECLIDINIUM VILANTEROL INH SCH (08:30)
--- NOTE | 2018-07-22 09:29 | P.PN ---
Subjective Interval history: Follow up for left hand digit 3 infection s/p I&D. Patient seen and examined, lying in bed in no apparent distress. Does complain of continued pain. Did not sleep well. Afebrile. VSS. No acute complaints overnight. Continue on antibiotics. Eating well without any ab pain, nausea or vomiting. Denies any chest pain or shortness of breath. Physical Exam Vital signs: Vital Signs 07/21/18 12:00 07/21/18 16:00 07/21/18 20:00 Temperature 97.6 F 97.0 F L 99.6 F Pulse Rate 78 71 81 Respiratory Rate 16 16 18 Blood Pressure 114/51 L 106/52 L 110/57 L Pulse Oximetry 92 L 92 L 94 L 07/22/18 00:00 07/22/18 08:00 Temperature 97.5 F L 98.4 F Pulse Rate 87 71 Respiratory Rate 18 17 Blood Pressure 115/66 100/53 L Pulse Oximetry 94 L 93 L Intake & Output 07/21/18 07/22/18 07/22/18 18:59 06:59 18:59 Intake Total 2160 / 2160 2290 / 2290 Output Total 350 / 350 Balance 2160 / 2160 1940 / 1940 Weight 55.7 kg Intake: IV 1200 / 1200 2200 / 2200 NS Inj 1,000 ML @ 100 mls/hr IV 1000 / 1000 .CONT .Q10H [facility] Rx#:[id number] Unasyn Inj 3 GM In NS Inj 100 200 / 200 200 / 200 ML @ 200 mls/hr IV.SIG Q6H [facility] Rx#:[id number] LR 1000 mL Inj 1,000 ML @ 30 1000 / 1000 mls/hr IV.SIG .Q24H [facility] Rx#: [id number] Oral 960 / 960 90 / 90 Output: Urine 350 / 350 Other: # Voids 6 # Bowel Movements 1 Narrative: GENERAL: Alert, Oriented x 3, NAD. SKIN: Warm and dry. HEAD: Normocephalic. EYES: No scleral icterus. No injection or drainage. NECK: Supple, trachea midline. No JVD or lymphadenopathy. CARDIOVASCULAR: Regular rate and rhythm without murmurs, gallops, or rubs. RESPIRATORY: Breath sounds equal bilaterally. No accessory muscle use. GASTROINTESTINAL: Abdomen soft, non-tender, nondistended. MUSCULOSKELETAL: No cyanosis, or edema. Extremities without clubbing, cyanosis. s/p I&D, left hand wrapped in dressing. able to move fingers. No numbness or tingling. Sensation intact. BACK: Nontender without obvious deformity. No CVA tenderness. Results - Labs CBC & Chem 7: 07/21/18 04:40 07/22/18 05:00 Laboratory Results - last 24 hr 07/22/18 05:00 Creatinine 0.50 Estimated GFR Greater than 89 Microbiology 07/20/18 17:09 Abscess - Finger Acid Fast Bacilli Smear - Final No acid fast bacilli seen 07/20/18 17:09 Abscess - Finger Gram Stain - Final 07/20/18 17:09 Abscess - Finger Wound Culture - Preliminary No growth in 24 hours 07/20/18 17:09 Abscess - Finger Fungal Smear - Final No fungal elements seen 07/20/18 09:45 Blood - Peripheral Aerobic Blood Culture - Preliminary No growth in 1 day 07/20/18 09:45 Blood - Peripheral Anaerobic Blood Culture - Preliminary No growth in 1 day 07/20/18 09:48 Blood - Peripheral Aerobic Blood Culture - Preliminary No growth in 1 day 07/20/18 09:48 Blood - Peripheral Anaerobic Blood Culture - Preliminary No growth in 1 day - Procedures I&D of left middle finger 07/20/2018 Assessment and Plan - Assessment (1) Abscess of finger Code(s): L02.519 - Cutaneous abscess of unspecified hand Status: Acute - Plan Ms. Delgado is a pleasant 73-year-old female with a history of emphysema who presented to the emergency department due to worsening left hand third digit infection that she noticed initially on 07/17/2018. She was seen in the emergency department on 07/18/2018 underwent bedside I&D and subsequently was discharged from the ED on oral Keflex and Bactrim. Despite taking antibiotics her symptoms did not get better which led to this admission. Left hand third digit infection Infection in left hand and left forearm involvement. -MRI shows no abscess. Hand surgery consulted, underwent I&D. Patient was on cefepime and vancomycin empirically. Culture results from 06/17/2018 shows gram-positive rods. Infectious disease following, appreciate input and recommendations. Switched antibiotics to Unasyn and Bactrim. Will continue. -Leukocytosis improved. Afebrile. History of emphysema Continue home Trelegy Ellipta. Currently no evidence of decompensation. Full code. SCDs, ambulation. Discharge Planning: Likely discharge in 1-2 days unless culture results are finalized. Awaiting final ID recs.
--- NOTE | 2018-07-22 13:30 | P.PNID ---
Subjective Remarks: Patient is a 73-year-old female, who was working in the yard on July 17, and she noted a small pinpoint area that night. She really did not notice it while she was working in the yard because she was wearing gloves. The following day she had noted a reddened area and a pustular area so she went to the emergency room and she had I&D of an abscess. She was discharged on Keflex and Bactrim. She progressively worsen, and return to the hospital for further evaluation and treatment. The culture from the ED is now reported as growing gram-positive ely and possibly a Nocardia. Patient underwent surgery on July 19. Cultures currently are negative. Her pain is under control. She has been afebrile. She is currently on Bactrim and IV Unasyn. Her WBC was initially 13, 000 and is down to 8.2. Sed rate is 19. Notes reviewed Pain undwer control Afebrile C/S neg 48 H C/S 07/18 - NOcardia No rash or itching NO N/V Antibiotics: Bactrim Unasyn Lines: PIV Past Medical History: COPD (chronic obstructive pulmonary disease) History of hysterectomy Tonsillectomy Allergies/Adverse Reactions: Allergies No Known Allergies Allergy (Verified 07/20/18 07:50) Objective Vital Signs 07/21/18 16:00 07/21/18 20:00 07/22/18 00:00 Temperature 97.0 F L 99.6 F 97.5 F L Pulse Rate 71 81 87 Respiratory Rate 16 18 18 Blood Pressure 106/52 L 110/57 L 115/66 Pulse Oximetry 92 L 94 L 94 L 07/22/18 08:00 07/22/18 12:00 Temperature 98.4 F 98.0 F Pulse Rate 71 76 Respiratory Rate 17 17 Blood Pressure 100/53 L 113/56 L Pulse Oximetry 93 L 97 Intake & Output 07/21/18 07/22/18 07/22/18 18:59 06:59 18:59 Intake Total 2160 / 2160 2290 / 2290 100 / 100 Output Total 350 / 350 Balance 2160 / 2160 1940 / 1940 100 / 100 Weight 55.7 kg Intake: IV 1200 / 1200 2200 / 2200 100 / 100 NS Inj 1,000 ML @ 100 mls/hr IV 1000 / 1000 .CONT .Q10H [facility] Rx#:[id number] Unasyn Inj 3 GM In NS Inj 100 200 / 200 200 / 200 100 / 100 ML @ 200 mls/hr IV.SIG Q6H [facility] Rx#:[id number] LR 1000 mL Inj 1,000 ML @ 30 1000 / 1000 mls/hr IV.SIG .Q24H [facility] Rx#: [id number] Oral 960 / 960 90 / 90 Output: Urine 350 / 350 Other: # Voids 6 # Bowel Movements 1 07/20/18 17:09 Abscess - Finger Gram Stain - Final 07/20/18 17:09 Abscess - Finger Wound Culture - Preliminary No growth in 48 hours 07/20/18 09:45 Blood - Peripheral Aerobic Blood Culture - Preliminary No growth in 2 days 07/20/18 09:45 Blood - Peripheral Anaerobic Blood Culture - Preliminary No growth in 2 days 07/20/18 09:48 Blood - Peripheral Aerobic Blood Culture - Preliminary No growth in 2 days 07/20/18 09:48 Blood - Peripheral Anaerobic Blood Culture - Preliminary No growth in 2 days 07/20/18 17:09 Abscess - Finger Acid Fast Bacilli Smear - Final No acid fast bacilli seen 07/20/18 17:09 Abscess - Finger Mycobacterial Culture - Pending 07/20/18 17:09 Abscess - Finger Fungal Smear - Final No fungal elements seen 07/20/18 17:09 Abscess - Finger Fungal Culture - Pending Lab - Hematology Results 07/20/18 07/21/18 08:25 04:40 CBC w Diff Auto diff final WBC 8.2 RBC 3.99 L Hgb 12.3 Hct 37.7 MCV 94.6 D MCH 30.8 MCHC 32.6 RDW 13.2 Plt Count 213 MPV 8.6 Neut % (Auto) 78.6 H Lymph % (Auto) 13.0 [place] % (Auto) 7.3 Eos % (Auto) 0.6 Baso % (Auto) 0.5 Neut # (Auto) 6.5 Lymph # (Auto) 1.1 [place] # (Auto) 0.6 Eos # (Auto) 0.0 Baso # (Auto) 0.0 WBC Differential . Differential Comment . ESR 19 Lab - Chemistry Results 07/22/18 05:00 Creatinine 0.50 Estimated GFR Greater than 89 Imaging: ITS Impressions Hand MRI 07/20/18 00:00 CONCLUSION: 1. Diffuse soft tissue swelling third digit without abscess, characteristic of cellulitis. Finger X-Ray 07/20/18 10:08 CONCLUSION: Soft tissue swelling third digit. Physical Exam: GENERAL: awake and alert, not in respiratory distress. SKIN: Cool and dry. No generalized rash HEAD: Atraumatic. Normocephalic. No temporal wasting, or tenderness. EYES: [place] conjunctiva. No petechia or hemorrhage. No scleral icterus. No injection or drainage. EARS, NOSE AND THROAT: Mucous membranes pink and moist. No oral lesions noted. No exudate. No oral thrush. NECK: Trachea midline. Supple and not tender, no meningeal signs CARDIOVASCULAR: Regular rate and rhythm. No murmurs, rubs or gallops heard RESPIRATORY: Clear to auscultation. Breath sounds equal bilaterally. No rales , wheezing or rhonchi ABDOMEN: Soft, non-tender, nondistended. Bowel sounds present and normoactive. No guarding. No rebound. No organomegaly. EXTREMITIES: No clubbing, cyanosis, or edema. LUE - has bulky dressing in her L hand/wrist; there is nodular lymphangitis going up her upper arm, tender. Good ROM in joint. No calf tenderness. NEURO: Grossly non-focal PSYCHIATRIC: Normal affect, calm and cooperative. LINE: No evidence of infection Assessment and Plan (1) Acute lymphangitis of left upper extremity Status: Acute Code(s): L03.124 - Acute lymphangitis of left upper limb (2) Abscess of finger Status: Acute Code(s): L02.519 - Cutaneous abscess of unspecified hand - Plan Impression Nodular lymphangitis with flexor tenosynovitis, culture likely grew nocardia Recommendation Continue Bactrim for the NOcardia Continue Unasyn for now Follow C/S get baseline LFT Monitor progress Explained plan to the patient
[2018-07-22 17:19] LABS: Albumin 2.5 g/dL (3.4-5.0)
[2018-07-22 17:23] LABS: Total Protein 5.9 g/dL (6.4-8.2)
[2018-07-23] MEDS: Ampicillin/Sulbactam Inj 3 GM in Sodium Chloride 0.9% Inj 100 ML IV.SIG SCH ×3 (06:22→17:43)
[2018-07-23] MEDS: Acetaminophen 325 MG Tablet PO PRN ×3 (06:23→20:24)
[2018-07-23] MEDS: FLUTICASONE UMECLIDINIUM VILANTEROL INH SCH (08:08)
--- NOTE | 2018-07-23 09:29 | P.PNIM ---
Subjective Interval history: Follow up for left hand digit 3 infection s/p I&D. Patient seen and examined, slept well. Dressing to be changed today. Patient complaint of pain to left upper arm nodule, with erythema. ID updated. Awaiting final culture results and final ID recs for antibiotics for DC. VSS. Afebrile. Physical Exam Vital signs: Vital Signs 07/22/18 12:00 07/22/18 16:00 07/22/18 20:00 Temperature 98.0 F 97.3 F L 98.7 F Pulse Rate 76 70 77 Respiratory Rate 17 18 18 Blood Pressure 113/56 L 121/57 L 107/52 L Pulse Oximetry 97 98 96 07/22/18 22:00 07/23/18 00:00 07/23/18 07:13 Temperature 96.5 F L Pulse Rate 70 Respiratory Rate 18 18 Blood Pressure 115/66 Pulse Oximetry 94 L Intake & Output 07/22/18 07/23/18 07/23/18 18:59 06:59 18:59 Intake Total 1160 / 1160 190 / 190 100 / 100 Output Total 300 / 300 Balance 1160 / 1160 -110 / -110 100 / 100 Weight 55.7 kg Intake: IV 200 / 200 100 / 100 100 / 100 Unasyn Inj 3 GM In NS Inj 100 200 / 200 100 / 100 100 / 100 ML @ 200 mls/hr IV.SIG Q6H SILVESTRE Rx#:[id number] Oral 960 / 960 90 / 90 Output: Urine 300 / 300 Other: # Voids 6 # Bowel Movements 1 Narrative: GENERAL: Alert, Oriented x 3, NAD. SKIN: Warm and dry. HEAD: Normocephalic. EYES: No scleral icterus. No injection or drainage. NECK: Supple, trachea midline. No JVD or lymphadenopathy. CARDIOVASCULAR: Regular rate and rhythm without murmurs, gallops, or rubs. RESPIRATORY: Breath sounds equal bilaterally. No accessory muscle use. GASTROINTESTINAL: Abdomen soft, non-tender, nondistended. MUSCULOSKELETAL: No cyanosis, or edema. Extremities without clubbing, cyanosis. s/p I&D, left hand wrapped in dressing. able to move fingers. No numbness or tingling. Sensation intact. BACK: Nontender without obvious deformity. No CVA tenderness. Results - Labs CBC & Chem 7: 07/21/18 04:40 07/22/18 05:00 Laboratory Results - last 24 hr 07/22/18 05:00 Total Bilirubin 0.5 Direct Bilirubin 0.2 Indirect Bilirubin 0.3 AST 20 ALT 24 Alkaline Phosphatase 59 Total Protein 5.9 L Albumin 2.5 L Microbiology 07/20/18 17:09 Abscess - Finger Gram Stain - Final 07/20/18 17:09 Abscess - Finger Wound Culture - Preliminary No growth in 48 hours 07/20/18 09:45 Blood - Peripheral Aerobic Blood Culture - Preliminary No growth in 2 days 07/20/18 09:45 Blood - Peripheral Anaerobic Blood Culture - Preliminary No growth in 2 days 07/20/18 09:48 Blood - Peripheral Aerobic Blood Culture - Preliminary No growth in 2 days 07/20/18 09:48 Blood - Peripheral Anaerobic Blood Culture - Preliminary No growth in 2 days - Procedures I&D of left middle finger 07/20/2018 Assessment and Plan - Assessment (1) Abscess of finger Code(s): L02.519 - Cutaneous abscess of unspecified hand Status: Acute - Plan Ms. Delgado is a pleasant 73-year-old female with a history of emphysema who presented to the emergency department due to worsening left hand third digit infection that she noticed initially on 07/17/2018. She was seen in the emergency department on 07/18/2018 underwent bedside I&D and subsequently was discharged from the ED on oral Keflex and Bactrim. Despite taking antibiotics her symptoms did not get better which led to this admission. Left hand third digit infection Infection in left hand and left forearm involvement. -MRI shows no abscess. Hand surgery consulted, underwent I&D 07/20/18. Patient was on cefepime and vancomycin empirically. Culture results from 06/17/2018 shows gram-positive rods. Infectious disease following, appreciate input and recommendations. -Switched antibiotics to Unasyn and Bactrim. Will continue. -Leukocytosis improved. Afebrile. -Pain control with Percocet as needed. -Awaiting dressing change today. History of emphysema Continue home Trelegy Ellipta. Currently no evidence of decompensation. Full code. SCDs, ambulation. Discharge Planning: Discharge when cultures back and final ID recs in place.
[2018-07-23] MEDS ORDERED: Melatonin 5 MG Tablet PO ONE (21:00)
[2018-07-24] MEDS: Acetaminophen 325 MG Tablet PO PRN ×4 (00:30→22:50)
[2018-07-24] MEDS: Ampicillin/Sulbactam Inj 3 GM in Sodium Chloride 0.9% Inj 100 ML IV.SIG SCH ×4 (00:32→17:29)
[2018-07-24] MEDS ORDERED: VANCOMYCIN TROUGH OTHER ONE (05:45)
[2018-07-24 06:48] LABS: Glomerular Filtration Rate Greater Than 89 mL/min (>89)
[2018-07-24] MEDS: FLUTICASONE UMECLIDINIUM VILANTEROL INH SCH (08:46)
[2018-07-24 09:54] LABS: Calcium 7.6 mg/dL (8.5-10.1)
[2018-07-24 09:55] LABS: Albumin 2.4 g/dL (3.4-5.0); Carbon Dioxide 24.8 meq/L (21.0-32.0); Glucose,Random 81 mg/dL (74-106)
[2018-07-24 09:58] LABS: Alanine Aminotransferase 25 U/L (10-53); Aspartate Aminotransferase 19 U/L (15-37); Glomerular Filtration Rate Greater Than 89 mL/min (>89)
[2018-07-24 10:00] LABS: Total Protein 6.2 g/dL (6.4-8.2)
[2018-07-24 10:01] LABS: Alkaline Phosphatase 63 U/L (45-117)
[2018-07-24 10:02] LABS: Anion Gap 9 meq/L (5-15); Chloride 105 meq/L (98-107); Potassium 3.7 meq/L (3.5-5.1); Sodium 139 meq/L (136-145)
[2018-07-24 10:04] LABS: Blood Urea Nitrogen 7 mg/dL (7-18)
[2018-07-24] MEDS: Ciprofloxacin 250 MG Tablet PO SCH ×2 (12:28→21:37)
--- NOTE | 2018-07-24 12:48 | P.PNID ---
Subjective Remarks: Patient is a 73-year-old female, who was working in the yard on July 17, and she noted a small pinpoint area that night. She really did not notice it while she was working in the yard because she was wearing gloves. The following day she had noted a reddened area and a pustular area so she went to the emergency room and she had I&D of an abscess. She was discharged on Keflex and Bactrim. She progressively worsen, and return to the hospital for further evaluation and treatment. The culture from the ED is now reported as growing gram-positive ely and possibly a Nocardia. Patient underwent surgery on July 19. Cultures currently are negative. Her pain is under control. She has been afebrile. She is currently on Bactrim and IV Unasyn. Her WBC was initially 13, 000 and is down to 8.2. Sed rate is 19. Notes reviewed Afebrile C/O pain in her L hand, and also nodules over lymphangitis have increased in size, with more pain Intraop C/S negative so far C/S 07/18 - Possible Nocardia No rash or itching NO N/V Antibiotics: Bactrim Unasyn Lines: PIV Past Medical History: COPD (chronic obstructive pulmonary disease) History of hysterectomy Tonsillectomy Allergies/Adverse Reactions: Allergies No Known Allergies Allergy (Verified 07/20/18 07:50) Objective Vital Signs 07/23/18 16:00 07/23/18 20:00 07/23/18 21:10 Temperature 98.8 F 99 F Pulse Rate 78 85 Respiratory Rate 20 18 18 Blood Pressure 119/59 L 104/55 L Pulse Oximetry 95 94 L 07/24/18 00:00 07/24/18 01:25 07/24/18 08:29 Temperature 99.2 F 97.8 F Pulse Rate 78 77 Respiratory Rate 18 18 28 H Blood Pressure 107/51 L 108/57 L Pulse Oximetry 94 L 92 L 07/24/18 11:22 Temperature 97.9 F Pulse Rate 76 Respiratory Rate 16 Blood Pressure 116/58 L Pulse Oximetry 94 L Intake & Output 07/23/18 07/24/18 07/24/18 18:59 06:59 18:59 Intake Total 740 / 740 680 / 680 Balance 740 / 740 680 / 680 Weight 55.2 kg Intake: IV 300 / 300 200 / 200 Unasyn Inj 3 GM In NS Inj 100 300 / 300 200 / 200 ML @ 200 mls/hr IV.SIG Q6H SILVESTRE Rx#:[id number] Oral 440 / 440 480 / 480 Other: # Voids 6 3 Date of Last Bowel Movement 07/19/18 07/24/18 # Bowel Movements 1 1 07/20/18 09:45 Blood - Peripheral Aerobic Blood Culture - Preliminary No growth in 4 days 07/20/18 09:45 Blood - Peripheral Anaerobic Blood Culture - Preliminary No growth in 4 days 07/20/18 09:48 Blood - Peripheral Aerobic Blood Culture - Preliminary No growth in 4 days 07/20/18 09:48 Blood - Peripheral Anaerobic Blood Culture - Preliminary No growth in 4 days 07/20/18 17:09 Abscess - Finger Gram Stain - Final 07/20/18 17:09 Abscess - Finger Wound Culture - Final No growth in 72 hours (aerobically and anaerobically ) 07/20/18 17:09 Abscess - Finger Acid Fast Bacilli Smear - Final No acid fast bacilli seen 07/20/18 17:09 Abscess - Finger Mycobacterial Culture - Pending 07/20/18 17:09 Abscess - Finger Fungal Smear - Final No fungal elements seen 07/20/18 17:09 Abscess - Finger Fungal Culture - Pending Lab - Chemistry Results 07/22/18 07/24/18 07/24/18 05:00 04:40 04:40 Sodium 139 Potassium 3.7 Chloride 105 Carbon Dioxide 24.8 Anion Gap 9 BUN 7 Creatinine 0.56 0.54 Estimated GFR Greater than 89 Greater than 89 Random Glucose 81 Calcium 7.6 L Total Bilirubin 0.5 0.3 Direct Bilirubin 0.2 Indirect Bilirubin 0.3 AST 20 19 ALT 24 25 Alkaline Phosphatase 59 63 Total Protein 5.9 L 6.2 L Albumin 2.5 L 2.4 L Imaging: ITS Impressions Hand MRI 07/20/18 00:00 CONCLUSION: 1. Diffuse soft tissue swelling third digit without abscess, characteristic of cellulitis. Finger X-Ray 07/20/18 10:08 CONCLUSION: Soft tissue swelling third digit. Physical Exam: GENERAL: awake and alert, not in respiratory distress. SKIN: Cool and dry. No generalized rash HEAD: Atraumatic. Normocephalic. No temporal wasting, or tenderness. EYES: [place] conjunctiva. No petechia or hemorrhage. No scleral icterus. No injection or drainage. EARS, NOSE AND THROAT: Mucous membranes pink and moist. No oral lesions noted. No exudate. No oral thrush. NECK: Trachea midline. Supple and not tender, no meningeal signs CARDIOVASCULAR: Regular rate and rhythm. No murmurs, rubs or gallops heard RESPIRATORY: Clear to auscultation. Breath sounds equal bilaterally. No rales , wheezing or rhonchi ABDOMEN: Soft, non-tender, nondistended. Bowel sounds present and normoactive. No guarding. No rebound. No organomegaly. EXTREMITIES: No clubbing, cyanosis, or edema. LUE - incision on LMF dry; has red tender area over the MCP LIF and LMF. The nodules over the lymphangitis has increased in size, more tender, and seems to have fluctuance over the large one in the upper arm. NEURO: Grossly non-focal PSYCHIATRIC: Normal affect, calm and cooperative. 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
--- NOTE | 2018-07-24 14:12 | P.PNIM ---
Subjective Interval history: Follow up for left hand digit 3 infection s/p I&D. Patient seen and examined, patient states her pain is controlled. Spoke to ID who has evaluated the hand and removed dressing today, MCP showing some erythema as well as a fluctuant area on upper left extremity. Hand surgery has been updated about patient by ID and is planning to present today to assess. Patient is tearful, stating she would like her surgeon to follow up with her and wants reassurance that she is doing well. Attempted to encourage. Surgery will be in today. Continue on abx and IVF. Eating well without any nausea and vomiting. Vss. Physical Exam Vital signs: Vital Signs 07/23/18 16:00 07/23/18 20:00 07/23/18 21:10 Temperature 98.8 F 99 F Pulse Rate 78 85 Respiratory Rate 20 18 18 Blood Pressure 119/59 L 104/55 L Pulse Oximetry 95 94 L 07/24/18 00:00 07/24/18 01:25 07/24/18 08:29 Temperature 99.2 F 97.8 F Pulse Rate 78 77 Respiratory Rate 18 18 28 H Blood Pressure 107/51 L 108/57 L Pulse Oximetry 94 L 92 L 07/24/18 11:22 Temperature 97.9 F Pulse Rate 76 Respiratory Rate 16 Blood Pressure 116/58 L Pulse Oximetry 94 L Intake & Output 07/23/18 07/24/18 07/24/18 18:59 06:59 18:59 Intake Total 740 / 740 680 / 680 Balance 740 / 740 680 / 680 Weight 55.2 kg Intake: IV 300 / 300 200 / 200 Unasyn Inj 3 GM In NS Inj 100 300 / 300 200 / 200 ML @ 200 mls/hr IV.SIG Q6H SILVESTRE Rx#:[id number] Oral 440 / 440 480 / 480 Other: # Voids 6 3 Date of Last Bowel Movement 07/19/18 07/24/18 # Bowel Movements 1 1 Narrative: GENERAL: Alert, Oriented x 3, NAD. SKIN: Warm and dry. HEAD: Normocephalic. EYES: No scleral icterus. No injection or drainage. NECK: Supple, trachea midline. No JVD or lymphadenopathy. CARDIOVASCULAR: Regular rate and rhythm without murmurs, gallops, or rubs. RESPIRATORY: Breath sounds equal bilaterally. No accessory muscle use. GASTROINTESTINAL: Abdomen soft, non-tender, nondistended. MUSCULOSKELETAL: No cyanosis, or edema. Extremities without clubbing, cyanosis. s/p I&D, left hand wrapped in dressing. The nodules over the lymphangitis has increased in size, more tender, and seems to have fluctuance over the large one in the upper arm. BACK: Nontender without obvious deformity. No CVA tenderness. Results - Labs CBC & Chem 7: 07/21/18 04:40 07/24/18 04:40 Laboratory Results - last 24 hr 07/24/18 07/24/18 07/24/18 04:40 04:40 04:40 Sodium 139 Potassium 3.7 Chloride 105 Carbon Dioxide 24.8 Anion Gap 9 BUN 7 Creatinine 0.56 0.54 Estimated GFR Greater than 89 Greater than 89 Random Glucose 81 Calcium 7.6 L Total Bilirubin 0.3 AST 19 ALT 25 Alkaline Phosphatase 63 Total Protein 6.2 L Albumin 2.4 L Vancomycin Trough Less than 0.8 L Microbiology 07/20/18 09:45 Blood - Peripheral Aerobic Blood Culture - Preliminary No growth in 4 days 07/20/18 09:45 Blood - Peripheral Anaerobic Blood Culture - Preliminary No growth in 4 days 07/20/18 09:48 Blood - Peripheral Aerobic Blood Culture - Preliminary No growth in 4 days 07/20/18 09:48 Blood - Peripheral Anaerobic Blood Culture - Preliminary No growth in 4 days 07/20/18 17:09 Abscess - Finger Gram Stain - Final 07/20/18 17:09 Abscess - Finger Wound Culture - Final No growth in 72 hours (aerobically and anaerobically ) - Procedures I&D of left middle finger 07/20/2018 Assessment and Plan - Assessment (1) Abscess of finger Code(s): L02.519 - Cutaneous abscess of unspecified hand Status: Acute - Plan Ms. Delgado is a pleasant 73-year-old female with a history of emphysema who presented to the emergency department due to worsening left hand third digit infection that she noticed initially on 07/17/2018. She was seen in the emergency department on 07/18/2018 underwent bedside I&D and subsequently was discharged from the ED on oral Keflex and Bactrim. Despite taking antibiotics her symptoms did not get better which led to this admission. Left hand third digit infection Nodular lymphangitis with flexor tenosynovitis, likely nocardia Infection in left hand and left forearm involvement. -MRI shows no abscess. Hand surgery consulted, underwent I&D 07/20/18. Patient was on cefepime and vancomycin empirically. Culture results from 06/17/2018 shows gram-positive rods. Infectious disease following, appreciate input and recommendations. -Switched antibiotics to Unasyn and Bactrim, increased dose per ID. Added Cipro. -Leukocytosis improved. Afebrile. -Pain control with Percocet as needed. -Dressing changed today. Appears to be worse today, with worsening nodular in upper left arm with fluctuance noted. -Awaiting hand surgery to reevaluate today. History of emphysema Continue home Trelegy Ellipta. Currently no evidence of decompensation. Full code. SCDs, ambulation. Discharge Planning: Awaiting reevaluation from hand surgery today.
--- NOTE | 2018-07-24 20:13 | P.PNOP ---
Subjective Interval history: Patient reports pain dorsum left hand. Frustrated by spreading lesion on upper arm. Anxious to be discharged. Physical Exam Vital signs: Vital Signs 07/23/18 21:10 07/24/18 00:00 07/24/18 01:25 Temperature 99.2 F Pulse Rate 78 Respiratory Rate 18 18 18 Blood Pressure 107/51 L Pulse Oximetry 94 L 07/24/18 08:29 07/24/18 11:22 07/24/18 17:19 Temperature 97.8 F 97.9 F 97.4 F L Pulse Rate 77 76 74 Respiratory Rate 28 H 16 16 Blood Pressure 108/57 L 116/58 L 116/57 L Pulse Oximetry 92 L 94 L 95 Intake & Output 07/24/18 07/24/18 07/25/18 06:59 18:59 06:59 Intake Total 680 / 680 1300 / 1300 Balance 680 / 680 1300 / 1300 Weight 55.2 kg Intake: IV 200 / 200 100 / 100 Unasyn Inj 3 GM In NS Inj 100 200 / 200 100 / 100 ML @ 200 mls/hr IV.SIG Q6H SILVESTRE Rx#:[id number] Oral 480 / 480 1200 / 1200 Other: # Voids 3 5 Date of Last Bowel Movement 07/24/18 # Bowel Movements 1 - Routine Extremities Exam Comments: Dressing changed. sutures in place with no active drainage. swelling over dorsum right hand. nodule over left upper arm. function intact fds/fdp, sitlt m/ u/r, <2 sec capillary refill Results - Labs CBC & Chem 7: 07/21/18 04:40 07/24/18 04:40 Laboratory Results - last 24 hr 07/24/18 07/24/18 07/24/18 04:40 04:40 04:40 Sodium 139 Potassium 3.7 Chloride 105 Carbon Dioxide 24.8 Anion Gap 9 BUN 7 Creatinine 0.56 0.54 Estimated GFR Greater than 89 Greater than 89 Random Glucose 81 Calcium 7.6 L Total Bilirubin 0.3 AST 19 ALT 25 Alkaline Phosphatase 63 Total Protein 6.2 L Albumin 2.4 L Vancomycin Trough Less than 0.8 L Microbiology 07/20/18 09:45 Blood - Peripheral Aerobic Blood Culture - Preliminary No growth in 4 days 07/20/18 09:45 Blood - Peripheral Anaerobic Blood Culture - Preliminary No growth in 4 days 07/20/18 09:48 Blood - Peripheral Aerobic Blood Culture - Preliminary No growth in 4 days 07/20/18 09:48 Blood - Peripheral Anaerobic Blood Culture - Preliminary No growth in 4 days - Procedures I&D of left middle finger 07/20/2018 Assessment and Plan - Assessment and Plan 73yF prior patient of mine s/p R CTR presents now after sustaining injury while gardening to left middle finger 07/15. Patient presented to ER 07/18 and underwent I&D by ER physician with cultures prelim gram + rods, represented today with persistent pain and swelling now POD4 s/p I&D left middle finger and flexor tendon sheath -Ab and discharge per ID -Dressing changed, daily dressing change and ROM -followup 07/28 if discharged and followup with ID next week
[2018-07-24] MEDS ORDERED: Melatonin 5 MG Tablet PO PRN (22:33)
[2018-07-25] MEDS: Ampicillin/Sulbactam Inj 3 GM in Sodium Chloride 0.9% Inj 100 ML IV.SIG SCH ×2 (00:49→05:59)
[2018-07-25 04:58] VITALS: O2SAT 95
[2018-07-25] MEDS: Acetaminophen 325 MG Tablet PO PRN (06:05)
[2018-07-25 08:18] VITALS: BP 114/51; PULSE 79; RESP 19; TEMP 97.9
[2018-07-25] MEDS: FLUTICASONE UMECLIDINIUM VILANTEROL INH SCH (09:58)
[2018-07-25] MEDS: Ciprofloxacin 250 MG Tablet PO SCH (09:58)
--- NOTE | 2018-07-25 10:12 | P.DS ---
Date of admission: 07/20/18 09:50 Primary care physician: Chris Gonzales MD Anticipated date of discharge: 07/25/18 Brief History from admission: Ms. Delgado is a pleasant 73-year-old female with a history of emphysema who presents to the emergency department on 07/20/2018 due to worsening infection of her third digit of her left hand. She did some yard work on 2017 with gloves on but felt a pinprick sensation. Subsequently she started having pain and swelling. She was seen in the emergency department on 07/18/2018. She underwent bedside I&D and was discharged on Bactrim and Keflex. Patient was already on doxycycline due to tick bite before. Despite taking antibiotics patient's symptoms did not improve which led to this admission. Patient denies any chest pain, shortness of breath, fever or chills. Denies any changes in bowel or bladder habits. Hand surgery was consulted. Past medical history: Emphysema Past surgical history: Hysterectomy, mammoplasty, tonsillectomy Social history: Patient denies using tobacco or illicit drugs. She drinks socially. Family history: Mother had Alzheimer's disease, father had Vinco's asthma. Patient update on day of discharge: Follow up nodular lymphangitis. Patient seen and examined, lying in bed comfortably, doing well this morning. Slept well. Hand surgery in to see patient last evening and performed dressing change. Ok to nh from hand surgery standpoint. Spoke with ID who clears patient to DC and have close follow up with Dr. Golden. Left upper arm nodule painful to touch but erythema seems to be improving. DS: Diagnosis - Discharge Diagnosis (1) Abscess of finger Status: Acute DS: Summary Hospital Course: Ms. Delgado is a pleasant 73-year-old female with a history of emphysema who presented to the emergency department due to worsening left hand third digit infection that she noticed initially on 07/17/2018. She was seen in the emergency department on 07/18/2018 underwent bedside I&D and subsequently was discharged from the ED on oral Keflex and Bactrim. Despite taking antibiotics her symptoms did not get better which led to this admission. Left hand third digit infection suspected nodular lymphangitis with flexor tenosynovitis, likely nocardia. Infection in left hand and left forearm involvement. MRI shows no abscess. Hand surgery consulted, underwent I&D 07/20/18. Patient was on cefepime and vancomycin empirically. Culture results from 06/17/2018 shows gram- positive rods. Infectious disease followed patient during hospitalization. Switched antibiotics to Unasyn and Bactrim, increased dose per ID. Added Cipro. Leukocytosis improved. Afebrile. Pain control with Percocet as needed. Dressing changed yesterday by hand surgery on 07/24/18, clear to DC. ID with abx as written and to follow up closely with Dr. Joe. History of emphysema, continue home Trelegy Ellipta. Currently no evidence of decompensation. Patient is stable on day of discharge. DC home. Follow up PCP and ID. RX as written. Regular diet as tolerated. Activity as tolerated/ Keep arm elevated while at rest. - Time Spent with Patient Total time spent providing and/or coordinating discharge services: Greater than 30 minutes - Quality: VTE Deep Vein Thrombosis/Pulmonary Embolism Present on Admission: No Exam Vital signs: Vital Signs 07/24/18 11:22 07/24/18 17:19 07/24/18 20:00 Temperature 97.9 F 97.4 F L 98.7 F Pulse Rate 76 74 80 Respiratory Rate 16 16 18 Blood Pressure 116/58 L 116/57 L 119/59 L Pulse Oximetry 94 L 95 94 L 07/25/18 00:00 07/25/18 04:00 07/25/18 08:00 Temperature 98.4 F 98.5 F 97.9 F Pulse Rate 81 77 79 Respiratory Rate 18 18 19 Blood Pressure 94/52 L 105/55 L 114/51 L Pulse Oximetry 94 L 95 95 07/25/18 09:19 Temperature Pulse Rate Respiratory Rate 19 Blood Pressure Pulse Oximetry Intake & Output 07/24/18 07/25/18 07/25/18 18:59 06:59 18:59 Intake Total 1300 / 1300 440 / 440 340 / 340 Output Total 200 / 200 Balance 1300 / 1300 440 / 440 140 / 140 Weight 55 kg Intake: IV 100 / 100 200 / 200 100 / 100 Unasyn Inj 3 GM In NS Inj 100 100 / 100 200 / 200 100 / 100 ML @ 200 mls/hr IV.SIG Q6H SILVESTRE Rx#:[id number] Oral 1200 / 1200 240 / 240 240 / 240 Output: Urine 200 / 200 Other: # Voids 5 4 Date of Last Bowel Movement 07/24/18 07/24/18 07/24/18 # Bowel Movements 1 Narrative: GENERAL: Alert, Oriented x 3, NAD. SKIN: Warm and dry. HEAD: Normocephalic. EYES: No scleral icterus. No injection or drainage. NECK: Supple, trachea midline. No JVD or lymphadenopathy. CARDIOVASCULAR: Regular rate and rhythm without murmurs, gallops, or rubs. RESPIRATORY: Breath sounds equal bilaterally. No accessory muscle use. GASTROINTESTINAL: Abdomen soft, non-tender, nondistended. MUSCULOSKELETAL: No cyanosis, or edema. Extremities without clubbing, cyanosis. s/p I&D, left hand wrapped in dressing. The nodules over the lymphangitis are tender but erythema improved, size no change overnight. BACK: Nontender without obvious deformity. No CVA tenderness. Results Procedures completed during hospitalization: I&D of left middle finger 07/20/2018 Labs on day of discharge: Labs from last 24 hours 07/24/18 07/24/18 04:40 04:40 BUN 7 Vancomycin Trough Less than 0.8 L Preliminary micro results at discharge 07/20/18 09:45 Aerobic Blood Culture - Preliminary Blood - Peripheral No growth in 4 days Anaerobic Blood Culture - Preliminary No growth in 4 days 07/20/18 09:48 Aerobic Blood Culture - Preliminary Blood - Peripheral No growth in 4 days Anaerobic Blood Culture - Preliminary No growth in 4 days - Impressions ITS Impressions Hand MRI 07/20/18 00:00 CONCLUSION: 1. Diffuse soft tissue swelling third digit without abscess, characteristic of cellulitis. Finger X-Ray 07/20/18 10:08 CONCLUSION: Soft tissue swelling third digit. Discharge Plan - Discharge Disposition Patient Disposition: Discharge Home - Discharge Condition Condition: Stable - Discharge Order Discharge Orders: Discharge Order (Routine); Ordered 07/25/18 Ordered By: Kiara Valadez - Discharge Details Anticipated Discharge Date: 07/25/18 - Physicians Team Primary Care Provider: Chris Gonzales Attending Provider: Edenilson Downey Other Providers: Tita Dumont MD ; Susan Joe MD
== END 2018-07-25 11:13 | disposition home or self-care (01) | DRG 580 ==
LOC: PHED 07:39 → PHEDA 09:50 → PH3 10:52
PROVIDERS: ADMIT Hospitalist; ATTEND Hospitalist
PROC: DEBRIDE (2018-07-20 16:38)
CPT/HCPCS: 10060; 26010; 73140; 73218; 76937; 80048; 80053; 80076; 80202; 82565; 83605; 85025; 85651; 85652; 86140; 87015; 87040; 87070; 87102; 87116; 87118; 87186; 87205; 87206; 90471; 93005; 99282; 99285; J0295; J0692; J2001; J2704; J3010; J3370; J7030; J7050; J7120